=== PATIENT | male | born 1980 | race African-American/Black ===

== ENCOUNTER 2017-08-10 10:51 | Emergency (ER) | payer OTHER ==
[~2017-08-10] VITALS: Ht 180.3 cm; Wt 72.6 kg
--- NOTE | 2017-08-10 11:16 | NUR ---
A/OX4, AMBULATORY IN A STEADY GAIT TO ED BED 18, C/O COUGH, FEVER, HEADACHE X 3 DAYS. ALSO REQUESTING TO HAVE EARRING REMOVED STUCKED TO LEFT EAR. NAD FEBRILE. VSS PENDING ER MD [facility]A
[2017-08-10] MEDS ORDERED: LIDOCAINE 2% 20 ML MDV ONE ×2 (11:54→11:58)
[2017-08-10] MEDS ORDERED: ACETAMINOPHEN ES 500 MG TABLET ONE (11:59)
[2017-08-10] MEDS ORDERED: LIDOCAINE 2% 20 ML MDV INFIL ONE (12:00)
[2017-08-10] MEDS ORDERED: ACETAMINOPHEN 325 MG TABLET PO ONE (12:00)
[2017-08-10 12:38] VITALS: BP 120/68
== END 2017-08-10 12:43 | disposition home or self-care (01) ==
LOC: ER 10:54
DX: S00.452A Superficial foreign body of left ear, initial encounter (principal); R05 Cough; F17.200 Nicotine dependence, unspecified, uncomplicated; X58.XXXA Exposure to other specified factors, initial encounter; Y93.89 Activity, other specified; Y92.89 Other specified places as the place of occurrence of the external cause; Y99.8 Other external cause status
CPT/HCPCS: A4606; J3490; Z7610